=== PATIENT | male | born 1970 | race Caucasian/White ===

== ENCOUNTER 2016-10-24 11:04 | Emergency (ER) | payer BC | END 2016-10-24 13:51 | disposition home or self-care (01) | LOC: ER 11:04 | DX: S29.012A Strain of muscle and tendon of back wall of thorax, initial encounter (principal); W18.30XA Fall on same level, unspecified, initial encounter; Z87.311 Personal history of (healed) other pathological fracture; B20 Human immunodeficiency virus [HIV] disease | CPT/HCPCS: 72072; 99284; A9270-GY ==